=== PATIENT | female | born 1970 | race Caucasian/White ===

== ENCOUNTER 2019-07-24 00:20 | Day surgery (SDC) | payer OTHER, SELFPAY ==
[2019-07-13 13:29] VITALS: BMI 32.0
[2019-07-24] VITALS (9 sets, daily range): BP systolic 103–120; BP diastolic 66–86; PULSE 66–114; RESP 14–18; TEMP 37.1–37.2; O2SAT 96–99
[2019-07-24] MEDS: LACTATED RINGERS 1,000 ML 30 ML IV CONT ×2 (06:20→08:14)
--- NOTE | 2019-07-24 06:46 | P.PNAN_ITS ---
Anes - Initial Pre Proc Eval Procedure: Operation Date: 07/24/19 07:30 Proposed Procedures p Partial Plantar Fasciectomy Left Foot - Bunny Shields JR, MD Date/Time: 07/24/19 06:46 Surgeon: Bunny Shields JR, MD Pre Op Diagnosis: Plantar Fasciitis Left Foot Patient Data Age: 49 Gender: F Height: 1.73 m Weight: 99.3 kg Allergies Allergy/AdvReac Type Severity Reaction Status Date / Time Penicillins Allergy Mild Rash Verified 07/24/19 06:07 Home Medications Medication Instructions Recorded Confirmed Type valacyclovir [Valtrex] 500 mg PO DAILY 07/13/19 07/24/19 History Patient hx anesthesia problems: none Family hx anesthesia problems: none [facility] Past Medical History Medical History (Updated 07/24/19 @ 06:48 by Jerry Philip MD) Obesity Family History Family History (Updated 12/23/15 @ 23:21 by DOCTOR UNKNOWN) Mother Patient's mother is in good health Father Patient's father is in good health Social History Social History Smoking status: Never smoker Alcohol intake: current Anes - Eval Final PreProcedure Day of Procedure 07/24/19 06:46 Patient weight: obese Heart: regular rate and rhythm Lungs: clear to auscultation and normal air movement Airway: Mallampati scale class II Neurological: alert and oriented Last oral intake: >/= 8 hours ASA classification: II Emergent: no Anesthetic plan: proceed Anesthesia type and monitoring: general LMA Informed Consent: The patient's anesthetic plan and its attendant risks and benefits were discussed with the patient/family/POA. Questions were solicited and answers provided to the satisfaction of the patient/family/POA.
--- NOTE | 2019-07-24 07:20 | WPDHPUPDATE1 ---
History and Physical Update Update Date/Time: 07/24/19 07:20 History and Physical has been reviewed, including an updated exam of the patient. There are NO changes in the patient's condition. Risks, benefits, and alternatives have been discussed and questions answered. Patient agrees to proceed with procedure.
[2019-07-24] MEDS: CLINDAMYCIN 900 MG/NS 50 ML 900 MG/50 ML PIGGYBACK 50 MG IVPB (07:25)
[2019-07-24] MEDS: LIDOCAINE HCL 2% LOCAL INJ 20 ML VIAL INFILTRATE (07:44)
[2019-07-24] MEDS: NEOMYCIN/POLYMYXIN/BACITRACIN OINTMENT 15 GM TUBE 1 APPLIC TOPICAL (08:15)
--- NOTE | 2019-07-24 08:30 | PM.OP ---
Procedure Note - Brief Procedure Note - Brief Date of procedure: 07/24/19 Pre-op diagnosis: Plantar Fasciitis Left Foot Post-op diagnosis: same Procedure performed: Partial plantar fasciectomy left foot Anesthesia: GLMA Surgeon: Bunny Shields JR, DPM Estimated blood loss (mL): 1 Complications: No immediate complications Condition: stable Disposition: same day
--- NOTE | 2019-07-24 10:48 | SUR.PHASEII ---
1040- script given to pt and spouse. copy made for chart. pt getting dressed to go home.
--- NOTE | 2019-07-24 15:34 | OP_ITS ---
DATE OF PROCEDURE: 07/24/2019 PREOPERATIVE DIAGNOSIS: Chronic plantar fasciitis of the left foot. POSTOPERATIVE DIAGNOSIS: Chronic plantar fasciitis of the left foot. PROCEDURE: Partial plantar fasciectomy of the left foot. PATHOLOGY: Resected portion of plantar fascia sent for gross and histopathology. ANESTHESIA: LMA with local. HEMOSTASIS: Pneumatic ankle tourniquet at 250 mmHg. ESTIMATED BLOOD LOSS: Minimal. MATERIALS USED: 3-0 Vicryl, 2-0 Prolene, and 3-0 Prolene. INJECTABLES: 20 cc of a 1:1 mixture of 2% lidocaine plain and 0.5% Marcaine plain injected preoperatively. COMPLICATIONS: None. PROCEDURE IN DETAIL: Under mild sedation, the patient was brought into the operating room and placed on the operating table in supine position. A pneumatic ankle tourniquet was placed about the patient's left ankle. Following general anesthesia, local anesthesia was obtained about the left ankle utilizing 20 cc of a 1:1 mixture of 2% lidocaine plain and 0.5% Marcaine plain. The foot was then scrubbed, prepped, and draped in the usual aseptic manner. An Esmarch bandage was then used to exsanguinate the patient's left foot and the pneumatic ankle tourniquet was then inflated. Attention was directed to the plantar aspect of the left foot where the left hallux and left 2nd digit were dorsiflexed. This elicited the windlass effect and made the medial band of the plantar fascia prominent. This medial band of the plantar fascia was extrapolated proximally, and an incision was made just distal to the inferior calcaneus. The incision was continued deep down through subcutaneous tissues using sharp and blunt dissection. The incision was approximately 3 cm in length. Careful dissection was continued deep down to the level of the plantar fascia. A Weitlaner was used to expose the incision site as it extended down to the origin of the medial band of the plantar fascia. At this point, a 15 blade was used to resect a 3 mm component of the medial and central bands of the plantar fascia. It was sent for gross and histopathology. The plantar fascia was noted to be 2 or 3 times normal thickness, the tissue was also hypertrophic and dystrophic. The wound site was then flushed with copious amounts of sterile saline. The lateral band of the plantar fascia was left intact. The wound site was flushed with copious amounts of sterile saline. Next, the subcutaneous structures were reapproximated and coapted utilizing 3-0 Vicryl. Next, the skin was reapproximated and coapted utilizing 2-0 Prolene in vertical mattress suture fashion technique. Next the skin was reapproximated and coapted as well with 3-0 Prolene in simple interrupted suture fashion technique. Upon completion of the procedure, the incision was dressed with Adaptic, 4x4s, Kerlix, and Coban. The pneumatic ankle tourniquet was then deflated and a prompt hyperemic response was noted to all digits of the left foot. A Cam walker boot was then applied. The patient did very well with the procedure and anesthesia. She was transferred to the recovery room with vital signs stable and vascular status intact to all toes of the left foot. Following a period of postoperative monitoring, the patient will be discharged home on the following written and oral postoperative instructions: 1. Keep the dressing clean, dry, and intact. 2. Avoid ambulation for the 1st week. 3. Patient to ice and elevate the right foot when at rest. 4. The patient should wear CAM walker boot at all times. 5. The patient should contact Dr. Shields for all postop care and if any problems arise. 6. Prescriptions were written for Percocet 5/325, dispensed 30 to be taken 1 p.o. q.4-6 hours as needed for severe pain. D I
== END 2019-07-24 10:49 | disposition home or self-care (01) ==
PROVIDERS: PCP Internal Medicine; Visit Provider Podiatrist Foot & Ankle Surgery
PROC: (CPT 28119; principal; 2019-07-24 07:30)
DX: M72.2 Plantar fascial fibromatosis (principal); E66.9 Obesity, unspecified; Z88.0 Allergy status to penicillin
CPT/HCPCS: 28060; 88304; A9270; C9290; J1100; J2250; J2405; J2704; J3010; J7120

== ENCOUNTER 2019-10-27 12:01 | Outpatient (CLI) | payer OTHER, SELFPAY ==
--- NOTE | ~2019-10-27 | XR_ITS ---
EXAMINATION: XR lumbar spine 2-3V EXAM DATE: 10/27/2019 12:26 INDICATION: Low back pain. TECHNIQUE: Lumber spine frontal, lateral, lateral L5-S1 projections for interpretation. Comparison is made to prior examination from 12/25/2016. FINDINGS: There is minimal lumbar levoscoliosis. There is mild diffuse lumbar disc disease and facet arthropathy. The vertebral bodies are aligned in the AP dimension. The vertebral body heights are ma intained. Sacrum, sacroiliac joints, sacral arcuate lines are intact. Paraspinal soft tissue is unrem arkable. There is no significant interval change. IMPRESSION: Mild lumbar spondylosis. Reviewed, dictated and finalized at location A. IMPRESSION: Mild lumbar spondylosis.
--- NOTE | ~2019-10-27 | XR_ITS ---
XR hip RT 2V w AP pelvis 10/27/2019 12:26 INDICATION: Right hip pain PROCEDURE: AP pelvis and 3 views right hip COMPARISON: 01/05/2011 FINDINGS: Fracture, dislocation or subluxation is not identified. The soft tissues appear within norm al limits. No foreign bodies are identified. IMPRESSION: 1: NO ACUTE BONE OR JOINT ABNORMALITY IDENTIFIED. Reviewed, dictated and finalized at location A.
== END 2019-10-27 12:02 | disposition home or self-care (01) ==
PROVIDERS: PCP Internal Medicine; Visit Provider Internal Medicine
DX: M25.551 Pain in right hip (principal); M47.896 Other spondylosis, lumbar region
CPT/HCPCS: 72100; 73502

== ENCOUNTER → 2020-02-02 15:19 | Outpatient (CLI) | payer OTHER, SELFPAY ==
--- NOTE | ~2020-02-02 | MM_ITS ---
EXAMINATION: MM screening byron BI w lu HISTORY: Screening TECHNIQUE: Craniocaudal and mediolateral oblique 3-D tomosynthesis images were obtained and synthetic 2-D images were generated. CAD analysis was submitted and interpreted. COMPARISON: Comparison to multiple prior studies sequentially, with oldest reviewed study dated 02/26. BREAST PARENCHYMAL COMPOSITION: FINDINGS: Stable benign-appearing mass in the upper outer quadrant of the left breast, consistent wit h hamartoma. There is no evidence of suspicious mass, calcification, or architectural distortion to s uggest malignancy in either breast. There has been no suspicious interval change. IMPRESSION: 1. No mammographic evidence of malignancy. 2. Recommend routine screening mammography in one year. BI-RADS Category 2: Benign finding(s). Reviewed, dictated and finalized at location A.
== END ==
PROVIDERS: PCP Internal Medicine; Visit Provider Obstetrics & Gynecology
DX: Z12.31 Encounter for screening mammogram for malignant neoplasm of breast (principal)
CPT/HCPCS: 77063; 77067

== ENCOUNTER 2020-07-22 16:26 | Outpatient (CLI) | payer OTHER, SELFPAY ==
[2020-07-22 18:37] LABS: Thyroid Stimulating Hormone Reflex 0.807 uIU/mL (0.465-4.68)
[2020-07-27 07:32] LABS: FSH 67.2 mIU/mL (***)
== END 2020-07-22 16:27 | disposition home or self-care (01) ==
LOC: ANHLAB 16:27
PROVIDERS: PCP Internal Medicine; Visit Provider Obstetrics & Gynecology
DX: N91.5 Oligomenorrhea, unspecified (principal)
CPT/HCPCS: 36415; 83001; 84443

== ENCOUNTER → 2020-08-01 15:17 | Outpatient (CLI) | payer OTHER, SELFPAY ==
--- NOTE | ~2020-08-01 | US_ITS ---
EXAMINATION: US pelvic complete w TV DATE: 08/01/2020 15:39 INDICATION: Oligomenorrhea Comparison:No prior studies for comparison. TECHNIQUE: Multiple transabdominal and endovaginal sonographic images of the pelvis performed. FINDINGS: The uterus measures 8.3 x 5.6 x 5.1 cm. The endometrial complex measures 7 mm. The right ovary measures 1.7 x 0.9 x 1.1 cm and the left ovary measures 2.5 x 1.4 x 1.6 cm. There ar e small follicles in each ovary.Normal doppler signal in both ovaries. There is no free fluid in the pelvis. There are no abnormal masses seen on either side. IMPRESSION: 1. Unremarkable pelvic ultrasound. Reviewed, dictated and finalized at location A. [employer]ISOR [employer]ELINE
== END ==
PROVIDERS: Visit Provider Obstetrics & Gynecology
DX: N91.5 Oligomenorrhea, unspecified (principal)
CPT/HCPCS: 76830; 76856

== ENCOUNTER → 2020-08-26 05:03 | Outpatient (CLI) | payer OTHER, SELFPAY ==
[2020-08-26 19:22] LABS: SARS-CoV-2 RNA PCR Negative
== END ==
PROVIDERS: Visit Provider Obstetrics & Gynecology
DX: Z01.812 Encounter for preprocedural laboratory examination (principal); Z20.822 Contact with and (suspected) exposure to COVID-19
CPT/HCPCS: C9803; U0003; U0005

== ENCOUNTER 2020-08-29 01:40 | Day surgery (SDC) | payer OTHER, SELFPAY ==
[2020-08-15 14:03] VITALS: BMI 30.4
--- NOTE | 2020-08-29 08:43 | P.HP_ITS ---
H&P: HPI History of Present Illness Date/Time: 08/29/20 08:43 50 y/o with postmenopausal bleeding (FSH indic ates menopause) and thickened endometrium on u/s Chief Complaint: postmenopausal bleeding Review of Systems Review of Systems: All systems reviewed & are unremarkable except as noted in HPI and below PMFSH Past Medical History Medical History Actinic keratosis Dorsalgia Family history of skin cancer Hip pain, right History of actinic keratosis Hyperlipidemia Obesity Plantar fasciitis of left foot Skin cancer screening Vaginal delivery x2 Surgical History Surgical History History of section 01/20/1994 History of foot surgery (~06/2019) History of mandibular surgery 04/1987 Family History Family History Mother Bipolar 1 disorder Sibling Bipolar 1 disorder Grandparent Alzheimer disease grandfather Social History Social History Smoking status: Never smoker Second hand tobacco smoke exposure: No Alcohol intake: current Drinks per week: 1 Substance use: never Substance use type: does not use Living arrangements: with family Spiritual care concerns: No Meds Home Medications and Allergies Home Medications Medication Instructions Recorded Confirmed Type valacyclovir 500 mg PO DAILY 08/15/20 08/15/20 History Allergies Allergy/AdvReac Type Severity Reaction Status Date / Time Penicillins Allergy Mild Rash Verified 08/15/20 14:00 Exam Const: General: healthy appearing, no acute distress, well developed, alert and awake Resp: Auscultation: clear to auscultation bilaterally Cardio: Rate: regular rate Rhythm: regular rhythm GI: Inspection: non-distended GI Palp: Yes Soft to palpation and No Tender ness to palpation present (GI) : Bimanual exam- vagina & uterus: normal bimanual exam, uterine size normal, uterine mobility normal, non-tender and soft Bimanual Exam- Adnexa, other: normal adnexae, no masses and No adnexal tenderness Extrem: General: no pedal edema and no calf tenderness Psych: Mental Status: mental status grossly normal Assessment and Plan Assessment and plan (1) Postmenopausal bleeding: Code(s): N95.0 - Postmenopausal bleeding Status: Acute Assessment and Plan: She was given option of endometrial biopsy in office or D&C/[facility]. She opted and signed consent for D&C/hysteroscopy after risks, benefits, complications, and alternatives discussed. She expressed understanding and wishes to proceed. (2) Endometrial thickening on ultrasound: Code(s): R93.89 - Abnormal findings on diagnostic imaging of other specified body structures Status: Acute
[2020-08-29 12:04] VITALS: BP 106/69; PULSE 60; RESP 16; TEMP 36.6; O2SAT 98
--- NOTE | 2020-08-29 12:25 | WPDANESEPPF ---
Anes - Initial Pre Proc Eval Procedure: Operation Date: 08/29/20 13:45 Proposed Procedures p Hysteroscopy Dilation and Curettage - Yulia Bhandari MD Date/Time: 08/29/20 12:25 Surgeon: Yulia Bhandari MD Pre Op Diagnosis: Abnormal Uterine Bleeding Patient Data Age: 50 Gender: F Height: 5 ft 8 in Weight: 91 kg Allergies Allergy/AdvReac Type Severity Reaction Status Date / Time Penicillins Allergy Intermediate Rash Verified 08/29/20 12:06 Home Medications Medication Instructions Recorded Confirmed Type valacyclovir 500 mg PO DAILY 08/15/20 08/29/20 History Patient hx anesthesia problems: none Family hx anesthesia problems: none PMFSH Past Medical History Medical History Actinic keratosis Dorsalgia Family history of skin cancer Hip pain, right History of actinic keratosis Hyperlipidemia Obesity Plantar fasciitis of left foot Skin cancer screening Vaginal delivery x2 Surgical History Surgical History History of section 01/20/1994 History of foot surgery (~06/2019) History of mandibular surgery 04/1987 Family History Family History Mother Bipolar 1 disorder Sibling Bipolar 1 disorder Grandparent Alzheimer disease grandfather Social History Social History Smoking status: Never smoker Second hand tobacco smoke exposure: No Alcohol intake: current Drinks per week: 1 Substance use: never Substance use type: does not use Living arrangements: with family Spiritual care concerns: No Anes - Eval Final PreProcedure Day of Procedure 08/29/20 12:25 Patient weight: overweight Heart: regular rate and rhythm Lungs: clear to auscultation Airway: Mallampati scale class II Neurological: alert and oriented Last oral intake: >/= 8 hours ASA classification: II Emergent: no Anesthetic plan: proceed Anesthesia type and monitoring: general GIVS and standard monitoring Informed Consent: The patient's anesthetic plan and its attendant risks and benefits were discussed with the patient/family/POA. Questions were solicited and answers provided to the satisfaction of the patient/family/POA.
[2020-08-29] MEDS: LACTATED RINGERS 1,000 ML 30 ML IV CONT (12:26)
[2020-08-29] MEDS: ACETAMINOPHEN 500 MG TABLET 1000 MG PO (12:39)
[2020-08-29] MEDS: SCOPOLAMINE 1.5 MG PATCH TRANSDERM (12:39)
--- NOTE | 2020-08-29 13:11 | WPDHPUPDATE1 ---
History and Physical Update Update Date/Time: 08/29/20 13:11 History and Physical has been reviewed, including an updated exam of the patient. There are NO changes in the patient's condition. Risks, benefits, and alternatives have been discussed and questions answered. Patient agrees to proceed with procedure.
--- NOTE | 2020-08-29 13:12 | PM.PROC ---
Procedure Note - Detailed Date of procedure: 08/29/20 Pre-op diagnosis: Abnormal Uterine Bleeding Postmenopausal bleeding Post-op diagnosis: other (postmenopausal bleeding, endometrial polyp) Procedure performed: D&C, hysteroscopy, endometrial polypectomy Description of procedure: She was taken to the operating room where general anesthesia was obtained. She was prepared and draped in the normal sterile fashion in the dorsal lithotomy position. A speculum was placed in the vagina. The anterior lip of the cervix was grasped with a single-tooth tenaculum. The cervix was dilated to allow passage of the hysteroscope, which revealed a moderate-sized polypoid lesion coming from the posterior wall of the endometrial cavity. Otherwise the endometrial cavity appeared normal. I called for the MyoSure device, but all for devices had been used this morning. While I was waiting for the Myosure scope and device to be brought to the OR, a polyp forceps was used to attempt to remove the endometrial polyp. After obtaining what appeared to be the endometrial polyp, another look was taken with the hysteroscope. The polyp appeared to have been removed in its entirety using the polyp forceps. Sharp curettage was then performed and the curettings sent for pathologic evaluation along with the polypoid tissue. The hysteroscope was used one last time and the polyp still appeared to have been removed. The tenaculum was removed from the cervix. Both tenaculum sites were bleeding slightly. Pressure was held with ring forceps and Allis clamp until excellent hemostasis was assured. All instruments were then removed from the vagina. Sponge, lap, and instrument counts were correct x2. She was taken to the recovery room in stable condition. Anesthesia: MAC Surgeon: Yulia Bhandari MD Estimated blood loss (mL): 10 Drains: No Packing: No Pathology: yes (endometrial curettings) Complications: No immediate complications Condition: stable Disposition: PACU Findings: Moderate sizedl polypoid lesion in otherwise normal endometrial cavity
[2020-08-29] MEDS: KETOROLAC 30 MG/ML VIAL (*BKC) IV PUSH (14:16)
[2020-08-29 15:00] VITALS: BP 105/65; PULSE 72; RESP 12; O2SAT 92
[2020-08-29 15:30] VITALS: BP 102/62; PULSE 49; RESP 12; O2SAT 100
[2020-08-29 15:55] VITALS: BP 106/71; PULSE 53; RESP 14
== END 2020-08-29 16:04 | disposition home or self-care (01) ==
PROVIDERS: PCP Internal Medicine; Visit Provider Obstetrics & Gynecology
PROC: 0U5B8ZZ Destruction of Endometrium, Via Natural or Artificial Opening Endoscopic (ICD-10-PCS; CPT 58563; principal; 2020-08-29 13:45)
DX: N95.0 Postmenopausal bleeding (principal); N84.0 Polyp of corpus uteri; L57.0 Actinic keratosis; E78.5 Hyperlipidemia, unspecified; M72.2 Plantar fascial fibromatosis
CPT/HCPCS: 58558; 88305; A9270; C9803; J1885; J2250; J2405; J2704; J3010; J7030; J7120; U0003; U0005

== ENCOUNTER → 2021-05-05 04:07 | Outpatient (CLI) | payer OTHER, SELFPAY ==
[2021-05-05 19:26] LABS: SARS-CoV-2 RNA PCR Negative
== END ==
PROVIDERS: PCP Internal Medicine; Visit Provider Obstetrics & Gynecology
DX: Z01.812 Encounter for preprocedural laboratory examination (principal); Z20.822 Contact with and (suspected) exposure to COVID-19
CPT/HCPCS: C9803; U0003; U0005

== ENCOUNTER 2021-05-08 14:56 | Inpatient (IN) | payer OTHER, SELFPAY ==
[2021-05-01 10:52] VITALS: BMI 30.4
--- NOTE | 2021-05-01 11:03 | PC.NURSE ---
Report to the Outpatient Waiting Room, entrance under the green pavilion located off [facility], at time 1000 on date 05/08/21. OR Time: 1200. - You and your visitor will be asked a series of questions to screen for COVID 19 for your protection. - A mask is required within the hospital. - Only one visitor is allowed at this time. Patient visitors will be guided where to wait when not with patient. Preoperative COVID Testing Requirements: No COVID Test needed if: (proof is required; if not received patient will have Rapid Test prior to entry) - Patient has received COVID Vaccine at least 14 days prior to procedure date or - Patient has positive COVID test result within last 90 days of surgery date. COVID Test needed if above criteria is not met If not COVID vaccinated a COVID test must be conducted within 72 hours of surgery and patient is asked to isolate self from time of testing until procedure. You will go to the [facility] for your COVID testing. The [facility] is located at the corner of [address] [facility]. COVID TEST 05/05 AT 0900 You will only be called if COVID results are positive and your surgeon may reschedule your elective surgery date. Patients may have clear liquids (water, carbonated beverages, clear teas, apple juice) until 3 hours prior to surgery with a maximum of 20 ounces. - No food from midnight until time of surgery - Infants may have breast milk until 4 hours before surgery, infant formula 6 hours prior to surgery. - Children will be allowed to drink immediately following surgery. If applicable, please bring a bottle or sippy cup to assist with drinking. Juice, water, soda, and popsicles are readily available. For infants on formula, please bring formula the day of surgery. Pacifiers are allowed. Take the following medications with a SIP of water the morning of surgery: VALTREX Medications to discontinue per physician: N/A Date to take last dose: N/A Please no make-up, nail dominican, hairspray, perfume, deodorant, or body powder the day of surgery. No jewelry (including any body piercings) or valuables the day of surgery, leave them at home. Please take a shower or bath the night before, or the morning of, surgery with an antibacterial soap. Wear comfortable, loose fitting clothing. Children are encouraged to wear pajamas. - Jewelry must be removed prior to entering the operating room. Rings and piercings that are not removed may be cut off. - The hospital will not accept responsibility for valuables. - Please leave all valuables, including medications, at home the day of surgery. If you are going home after surgery, a licensed electric lift truck driver must drive you home. - NO public transportation without another adult. - We recommend that an adult stay with you for 24 hours following discharge. - We also recommend that you do not drive, make important decision, drink alcoholic beverages, or take any drugs that were not prescribed by your health care provider for at least 24 hours after your discharge time. For Pediatric surgeries, we recommend two adults accompany the child home (only one inside the building at this time). Follow any additional instructions given to you from your surgeon. Telephone instructions given to TONYA WOODY and asked if any additional questions and then verbalized understanding. Patient advised to call surgeon office or pre surgery nurse liaison [phone] if any additional questions.
--- NOTE | 2021-05-04 08:29 | P.HP_ITS ---
H&P: HPI History of Present Illness Date/Time: 05/04/21 08:29 51 y/o with h/o postmenopausal bleeding for which she had D&C/polypectomy 08/2020. She has had bleeding 2-5 days roughly each month since, and is in menopause based on elevated FSH 06/2020. No pelvic pain Chief Complaint: postmenopausal bleeding Review of Systems Review of Systems: All systems reviewed & are unremarkable except as noted in HPI and below PMFSH Past Medical History Medical History Actinic keratosis Dorsalgia Family history of skin cancer Hip pain, right History of actinic keratosis Hyperlipidemia Obesity Plantar fasciitis of left foot Skin cancer screening (vaginal after ) x2 Surgical History Surgical History History of section x1 History of foot surgery (~06/2019) History of mandibular surgery 04/1987 Family History Family History Mother Bipolar 1 disorder Sibling Bipolar 1 disorder Grandparent Alzheimer disease grandfather Social History Social History Smoking status: Never smoker Second hand tobacco smoke exposure: No Alcohol intake: current Drinks per week: 2 Alcohol use details: 2-3 per month Substance use: never Substance use type: does not use Spiritual care concerns: No Meds Home Medications and Allergies Home Medications Medication Instructions Recorded Confirmed Type valacyclovir 500 mg PO DAILY 08/15/20 05/01/21 History Allergies Allergy/AdvReac Type Severity Reaction Status Date / Time Penicillins Allergy Intermediate Rash Verified 05/01/21 10:51 Exam Const: General: healthy appearing, no acute distress, alert and awake Resp: Auscultation: clear to auscultation bilaterally Cardio: Rate: regular rate Rhythm: regular rhythm GI: Inspection: non-distended GI Palp: Yes Soft to palpation and No Tenderness to palpation present (GI) : Bimanual exam- vagina & uterus: normal bimanual exam, uterine size normal, uterine mobility normal, soft and nontender Bimanual Exam- Adnexa, other: nor mal adnexae, no masses and No adnexal tenderness Extrem: General: no pedal edema and no calf tenderness Psych: Mental Status: mental status grossly normal Assessment and Plan Assessment and plan (1) Postmenopausal bleeding: Code(s): N95.0 - Postmenopausal bleeding Status: Acute Assessment and Plan: Persistent postmenopausal bleeding with h/o endometrial polyps. She opted and signed consent for TLH/BSO after risks, benefits, complications, and alternatives discussed. She expressed understanding and wishes to proceed.
[2021-05-08] VITALS (9 sets, daily range): BP systolic 94–112; BP diastolic 53–74; PULSE 60–82; RESP 12–18; TEMP 36.1–36.9; O2SAT 98–100
[2021-05-08] MEDS: ACETAMINOPHEN 500 MG TABLET 1000 MG PO (10:50)
--- NOTE | 2021-05-08 10:54 | WPDANESEPPF ---
Anes - Initial Pre Proc Eval Procedure: Operation Date: 05/08/21 12:00 Proposed Procedures p Total Laparoscopic Hysterectomy with Bilateral Salpingo-Oophorectomy - Yulia Bhandari MD Date/Time: 05/08/21 10:54 Surgeon: Yulia Bhandari MD Pre Op Diagnosis: post menopausal bleeding Patient Data Age: 51 Gender: F Height: 1.73 m Weight: 90.72 kg Allergies Allergy/AdvReac Type Severity Reaction Status Date / Time Penicillins Allergy Intermediate Rash Verified 05/08/21 10:33 Home Medications Medication Instructions Recorded Confirmed Type valacyclovir 500 mg PO DAILY 08/15/20 05/01/21 History Patient hx anesthesia problems: none and other (motion sickness) Family hx anesthesia problems: none Results Review: All pre-operative results and documents have been reviewed as part of the pre-operative evaluation. [facility] Past Medical History Medical History Actinic keratosis Dorsalgia Family history of skin cancer Hip pain, right History of actinic keratosis Hyperlipidemia Obesity Plantar fasciitis of left foot Skin cancer screening (vaginal after ) x2 Surgical History Surgical History History of section x1 History of foot surgery (~06/2019) History of mandibular surgery 04/1987 Family History Family History Mother Bipolar 1 disorder Sibling Bipolar 1 disorder Grandparent Alzheimer disease grandfather Social History Social History Smoking status: Never smoker Second hand tobacco smoke exposure: No Alcohol intake: current Drinks per week: 2 Alcohol use details: 2-3 per month Substance use: never Substance use type: does not use Living arrangements: with family Spiritual care concerns: No Anes - Eval Final PreProcedure Day of Procedure 05/08/21 10:54 Patient weight: overweight Heart: regular rate and rhythm Lungs: clear to auscultation Airway: Mallampati scale class II Neurological: alert and oriented Last oral intake: >/= 8 hours ASA classification: II Emergent: no Anesthetic plan: proceed Anesthesia type and monitoring: general ETT and standard monitoring Results Review: All pre-operative results and documents have been reviewed as part of the pre-operative evaluation. Informed Consent: The patient's anesthetic plan and its attendant risks and benefits were discussed with the patient/family/POA. Questions were solicited and answers provided to the satisfaction of the patient/family/POA.
[2021-05-08] MEDS: LACTATED RINGERS 1,000 ML 30 ML IV CONT ×2 (11:05→14:01)
[2021-05-08] MEDS: KETOROLAC 15 MG/ML VIAL (*BKC) IV PUSH (11:05)
[2021-05-08] MEDS: SCOPOLAMINE 1.5 MG PATCH TRANSDERM (11:13)
--- NOTE | 2021-05-08 11:41 | WPDHPUPDATE1 ---
History and Physical Update Update Date/Time: 05/08/21 11:41 History and Physical has been reviewed, including an updated exam of the patient. There are NO changes in the patient's condition. Risks, benefits, and alternatives have been discussed and questions answered. Patient agrees to proceed with procedure.
[2021-05-08] MEDS: ceFAZolin 2 GM/D5W 50 ML 2 GM/50 ML BAG IVPB (12:11)
[2021-05-08] MEDS: LIDO 2%/EPINEPHRINE 1:100,000 20 ML VIAL 17 ML INFILTRATE (12:37)
--- NOTE | 2021-05-08 13:20 | SUR.OPER ---
PATIENT MAINTAINS POSITIONING/UNCHANGED.
--- NOTE | 2021-05-08 13:51 | W.PM.PROC2 ---
Procedure Note - Detailed Date of Procedure 05/08/21 Pre-op Diagnosis post menopausal bleeding Post-op Diagnosis same Procedure Performed TLH/BSO Surgeon Yulia Bhandari MD Anesthesia general Indications recurrent postmenopausal bleeding Findings normal uterus, tubes, ovaries, appendix Description of Procedure She was taken to the operating room where general anesthesia was obtained. She was prepared and draped in the normal sterile fashion in the dorsal lithotomy position. Lidocaine was injected infraumbilically. A 5 mm skin incision was made in the infraumbilical fold with a scalpel. A 5 mm nonbladed trocar was placed with the camera in the trocar under direct visualization into the peritoneal cavity. Insufflation was begun. She was placed in Trendelenburg. 5 mm trocar was placed in the left lower quadrant under direct visualization, and the 11 mm trocar in the right lower quadrant. Inspection of the pelvis revealed the findings as noted above. The right infundibulopelvic ligament was grasped, coagulated, and transected using the Harmonic scalpel. The mesosalpinx was serially clamped and transected. The round ligament was then transected. The bladder flap was then created from the right side. The uterine artery was skeletonized. Attention was then turned to the left infundibulopelvic ligament, which was grasped and transected using Harmonic scalpel. The mesosalpinx and round ligaments were transected on the left side. The bladder flap was then created from the left, meeting the flap the right. The bladder was pushed down further with the laparoscopic Kittner. The bladder was taken down further using sharp dissection. The left uterine artery was skeletonized, clamped, coagulated, and transected using the Harmonic scalpel with excellent hemostasis visualized. Another several bites were taken down the broad ligament until the level of the uterosacral ligament had been reached. The right uterine artery was then clamped and transected. Several bites were taken down the broad ligament to the level of the uterosacral ligament was reached. Both uterosacral ligaments were then divided. Sponge stick was placed in the vagina and placed against the anterior cul-de-sac. A colpotomy incision was made with the Harmonic scalpel against the sponge stick. The vagina was then circumferentially incised, hugging against the cervix. Once the cervix and uterus were free of the surrounding vaginal tissue, the pelvis was irrigated. Excellent hemostasis was visualized. The cervix was pressed down as far as possible into the vaginal canal. Attention was then turned to the vagina. A speculum was placed. The cervix was grasped with single-tooth tenaculum. The cervix, uterus, fallopian tubes, and ovaries were all brought easily intact through the vagina. Moist blue towel was placed in the vagina to help hold the pneumoperitoneum. Attention was then turned back to the abdomen. The vaginal cuff was closed using 0 Vicryl interrupted sutures placed laparoscopically. A total of 4 sutures were used for reapproximation. The pelvis was once again irrigated. All operative sites were noted to be hemostatic. The right lower quadrant trocar was removed. . The Dany-Tiffanie device along with an 0 Vicryl was used to close the fascia of the right lower quadrant incision. The pneumoperitoneum was allowed to escape. All trocars were removed. All 3 skin incisions were closed using 4-0 Monocryl in subcuticular fashion. She tolerated the procedure well. Sponge, lap, needle, and instrument counts were correct x2. She was taken to the recovery room in stable condition. Estimated Blood Loss 150 Drains Yes ([place]) Packing No Pathology yes Complications No immediate complications Condition stable Disposition PACU
[2021-05-08] MEDS: DEXTROSE 5%/LACTATED RINGERS 1,000 ML 125 ML IV CONT (15:47)
[2021-05-08] MEDS: ENOXAPARIN 40 MG/0.4 ML SYRINGE SUB-Q (20:00)
[2021-05-09 04:30] VITALS: BP 101/56; PULSE 66; RESP 16; TEMP 36.8; O2SAT 100
[2021-05-09] MEDS: IBUPROFEN 600 MG TABLET PO (04:34)
[2021-05-09 05:17] LABS: Basophils Percent Auto 0.3 % (0.2-1.2); Hematocrit 37.3 % (37.0-47.0); Hemoglobin 12.4 g/dL (12.0-15.0); Immature Granulocyte Absolute 0.02 K/mm3 (0.00-0.031); Immature Granulocyte Percent A 0.3 % (0-0.5); Lymphocytes Percent Auto 19.1 % (18.3-44.2); Mean Corpuscular HGB Conc 33.2 g/dl (32-36); Mean Corpuscular Hemoglobin 31.9 pg (26-34); Mean Corpuscular Volume 95.9 fl (80-100); Mean Platelet Volume 9.5 fl (7.4-10.4); Monocytes Absolute Auto 0.5 K/mm3 (0.1-0.6); Monocytes Percent Auto 5.9 % (2.6-8.5); Neutrophils Absolute Auto 5.9 K/mm3 (1.3-6.7); Neutrophils Percent Auto 74.4 % (45.5-73.1); Platelet Count Result 275 k/mm3 (150-375); Red Blood Count 3.89 M/mm3 (4.2-5.4); Red Cell Distribution Width 13.1 % (11.5-14.5); White Blood Count 7.9 K/mm3 (4.5-10.0)
[2021-05-09 05:31] LABS: Anion Gap 5 mmol/L (8-16); Blood Urea Nitrogen 10 mg/dL (7-17); Calcium 9.2 mg/dL (8.4-10.2); Carbon Dioxide 28 mmol/L (22-30); Chloride 103 mmol/L (98-107); Estimated CRCL calculation 112 ml/min; Estimated Glomerular Filt Rate > 60; Glucose 112 mg/dL (65-110); Potassium 3.9 mmol/L (3.4-5.0); Sodium 136 mmol/L (137-145)
--- NOTE | 2021-05-09 07:28 | WPDANESPN ---
Anes - Prog Note Post-Op Date/Time: 05/09/21 07:28 Cardiovascular status: normal Respiratory status: normal Airway patency: baseline Mental status: baseline Post-Op hydration status: normal Vital Signs: Last Vital Signs Temp 36.8 C 05/09/21 04:30 Pulse 66 05/09/21 04:30 Resp 16 05/09/21 04:30 BP 101/56 L 05/09/21 04:30 Pulse Ox 100 05/09/21 04:30 Pain Score (VAS): 0 I/O: Intake & Output 05/08/21 05/08/21 05/09/21 15:59 23:59 07:59 Intake Total 250 1250 500 Output Total 80 1400 275 Balance 170 -150 225 Laboratory Tests 05/09/21 04:18 05/09/21 04:18 05/09/21 05/09/21 04:18 04:18 WBC 7.9 RBC 3.89 L Hgb 12.4 Hct 37.3 MCV 95.9 MCH 31.9 MCHC 33.2 RDW 13.1 Plt Count 275 MPV 9.5 Immature Gran % (Auto) 0.3 Neut % (Auto) 74.4 H Lymph % (Auto) 19.1 [place] % (Auto) 5.9 Eos % (Auto) 0.0 Baso % (Auto) 0.3 Lymph # (Auto) 1.50 [place] # (Auto) 0.5 Eos # (Auto) 0.0 Baso # (Auto) 0.0 Abs Immat Gran (auto) 0.02 Absolute Neuts (auto) 5.9 Absolute Nucleated RBC 0.0 Nucleated RBC % 0.0 Sodium 136 L Potassium 3.9 Chloride 103 Carbon Dioxide 28 Anion Gap 5 L BUN 10 Creatinine 0.60 L Estim Creat Clear Calc 112 Estimated GFR > 60 Glucose 112 H Calcium 9.2 Post-procedural complaints: none Patient Feedback: Patient satisfied with anesthetic care.
[2021-05-09 08:20] VITALS: BP 90/51; PULSE 64; RESP 18; TEMP 36.9; O2SAT 98
--- NOTE | 2021-05-09 08:24 | PM.GYNPNOP ---
DYE RANGE OPERATOR - A/P Postoperative Procedures: Procedures Operation Date: 05/08/21 12:00 Actual Procedure Side Surgeon p Total Laparoscopic Hysterectomy with Bilateral Salpingo-Oophorectomy Bilateral Yulia Bhandari MD Postoperative day: 1 (s/p hysterectomy) Postoperative status: doing well Postoperative plan: routine post-op care and discharge (and follow up in office in 1 week) Time Spent With Patient Time: Total time spent is greater than 50% in coordination of care (as documented) at patient's floor/unit and/or counseling patient: Time with patient: less than 15 minutes DYE RANGE OPERATOR- PN:Subj Post-Op Subjective Date/time seen: 05/09/21 08:24 Subjective: patient has no complaints, pain is well controlled and other (Tolerating regular diet. + flatus. Voiding without problems) Exam Const: General: no acute distress Resp: Auscultation: clear to auscultation bilaterally Cardio: Rate: regular rate Rhythm: regular rhythm GI: Inspection: non-distended and incision (Intact without erythema, drainage, or induration) GI Palp: Yes abdominal tenderness (appropriate) and Yes Soft to palpation Extrem: General: no edema DYE RANGE OPERATOR - PN: Obj Data Vital Signs Vital Signs: Vital Signs - 24 hr 05/08/21 11:06 05/08/21 14:01 05/08/21 14:15 Temperature 36.7 C 36.1 C L Pulse Rate 72 75 82 Respiratory Rate 14 18 Blood Pressure 109/71 94/53 L 102/61 Pulse Oximetry 98 100 100 05/08/21 14:30 05/08/21 14:45 05/08/21 14:54 Temperature Pulse Rate 71 60 71 Respiratory Rate 12 14 16 Blood Pressure 102/72 102/74 102/68 Pulse Oximetry 100 99 100 05/08/21 15:15 05/08/21 19:00 05/08/21 23:01 Temperature 36.5 C 36.9 C 36.8 C Pulse Rate 72 80 72 Respiratory Rate 18 16 16 Blood Pressure 112/63 112/68 110/70 Pulse Oximetry 99 99 05/09/21 04:30 Temperature 36.8 C Pulse Rate 66 Respiratory Rate 16 Blood Pressure 101/56 L Pulse Oximetry 100 Intake/Output Intake/Output: Intake & Output 05/06/21 05/07/21 05/08/21 05/09/21 23:59 23:59 23:59 23:59 Intake Total 1500 500 Output Total 1480 275 Balance 20 225 Meds/Results Medications: Active Medications Generic Name Dose Route Start Last Admin Trade Name Freq PRN Reason Stop Dose Admin Hydrocodone Bitart/Acetaminophen 1 tab 05/08/21 14:56 Hydrocodone/Acetaminophen (*Crx) 5-325 Mg Tablet PO Q3H PRN Pain Rated 5 or Less Hydrocodone Bitart/Acetaminophen 1 tab 05/08/21 14:56 Hydrocodone/Acetaminophen (*Crx) 10-325 Mg Tablet PO Q3H PRN Pain Rated 6 or Greater Enoxaparin Sodium 40 mg 05/08/21 20:00 05/08/21 20:00 Enoxaparin 40 Mg/0.4 Ml Syringe SUB-Q 40 mg DAILY WENDY Administration Ibuprofen 600 mg 05/08/21 14:56 05/09/21 04:34 Ibuprofen 600 Mg Tablet PO 600 mg Q6H PRN Administration Cramping Ketorolac Tromethamine 30 mg 05/08/21 14:56 Ketorolac 30 Mg/Ml Vial (*Bkc) IV PUSH 05/13/21 14:55 Q6H PRN Pain Rated 4-6 Metoclopramide HCl 10 mg 05/08/21 14:56 Metoclopramide Hcl Inj 10 Mg/2 Ml Vial IV PUSH Q6H PRN Nausea Morphine Sulfate 4 mg 05/08/21 14:56 Morphine Sulfate (*Crx) 4 Mg/Ml Inj IV PUSH Q4H PRN Pain Rated 7-10 Naloxone HCl 0.1 mg 05/08/21 14:56 Naloxone Hcl 0.4 Mg/Ml Vial IV PUSH Q2M PRN Respiratory rate less than 10 Ondansetron HCl 4 mg 05/08/21 14:56 Ondansetron Inj 4 Mg/2 Ml Vial IV PUSH Q6H PRN Nausea Simethicone 80 mg 05/08/21 14:56 Simethicone 80 Mg Tab.Chew PO Q2H PRN Gas Valacyclovir HCl 500 mg 05/09/21 09:00 Valacyclovir Hcl 500 Mg Tablet PO DAILY [facility] Labs CBC & Chem 7: 05/09/21 04:18 05/09/21 04:18 Labs: Laboratory Results - last 24 hr 05/09/21 05/09/21 04:18 04:18 WBC 7.9 RBC 3.89 L Hgb 12.4 Hct 37.3 MCV 95.9 MCH 31.9 MCHC 33.2 RDW 13.1 Plt Count 275 MPV 9.5 Immature Gran % (Auto) 0.3 Neut % (Auto) 74.4 H Lymph
--- NOTE | 2021-05-09 08:24 | PM.DS ---
DS: Admitting Diagnosis Discharge Date 05/09/2021 Admitting Diagnosis Postmenopausal bleeding DS: Discharge Diagnosis Discharge Diagnosis (1) Postmenopausal bleeding: Code(s): N95.0 - Postmenopausal bleeding Status: Acute DS: Summary Hospital Course Hospital Course: 51-year-old man who is menopausal who had AD and C hysteroscopy and polypectomy about 6 months ago, and since that time has had recurrent postmenopausal bleeding several times. She opted for definitive therapy in the form of hysterectomy. She was admitted on May 08 for planned total laparoscopic hysterectomy and bilateral salpingo-oophorectomy. Her surgery on May 08 was uneventful. Her postoperative course has also been uneventful. On postoperative day 1. May 09 she is meeting all postoperative milestones and expressed desire to be discharged home. She is being sent home with follow-up in 1 week in the medications as listed. Status at Discharge Functional status at discharge: independent ambulation Overall status at discharge: patient is progressing back to baseline Time Spent with Patient Time attestation: Total time spent providing and/or coordinating discharge services: Time spent: Less than 30 minutes DS: Data Data Completed and Pending Pending studies at discharge: Pending at discharge 05/08/21 13:26 Surgical [PTH] Routine Labs on day of discharge: Labs from last 24 hours 05/09/21 05/09/21 04:18 04:18 WBC 7.9 RBC 3.89 L Hgb 12.4 Hct 37.3 MCV 95.9 MCH 31.9 MCHC 33.2 RDW 13.1 Plt Count 275 MPV 9.5 Immature Gran % (Auto) 0.3 Neut % (Auto) 74.4 H Lymph % (Auto) 19.1 [place] % (Auto) 5.9 Eos % (Auto) 0.0 Baso % (Auto) 0.3 Lymph # (Auto) 1.50 [place] # (Auto) 0.5 Eos # (Auto) 0.0 Baso # (Auto) 0.0 Abs Immat Gran (auto) 0.02 Absolute Neuts (auto) 5.9 Absolute Nucleated RBC 0.0 Nucleated RBC % 0.0 Sodium 136 L Potassium 3.9 Chloride 103 Carbon Dioxide 28 Anion Gap 5 L BUN 10 Creatinine 0.60 L Estim Creat Clear Calc 112 Estimated GFR > 60 Glucose 112 H Calcium 9.2 Discharge Plan Discharge Attending physician on discharge: Yulia Bhandari Discharging Clinician: Yulia Bhandari Patient Disposition: Home, Self-Care Activity: may shower and pelvic rest Diet: as tolerated Wound Care Instructions: incision open to air Discharge Instructions: Remove the Scopolamine patch that was placed behind your left ear in 72 hours or less. Wash your hands after touching. Stand Alone Forms: General Discharge Instructions Follow-up/Referrals: Yulia Bhandari MD [Physician] - 1 Week Discharge Medications: New hydrocodone-acetaminophen 5-325 mg Tablet 1 tablet PO Q4H PRN (Reason: Pain Rated 5 Or Less) Qty: 30 RF: 0 ibuprofen 600 mg Tablet 600 mg PO Q6H PRN (Reason: Cramping) Qty: 60 RF: 0 Continued valacyclovir 500 mg tablet 500 mg PO DAILY RF: 0 Date of admission: 05/08/21 14:56 Primary Care Provider: Segun Krause Admitting Provider: Yulia Bhandari Attending physician on admission: Yulia Bhandari Condition: Stable Quality VTE Prophylaxis VTE prophylaxis: mechanical ordered and pharmacologic ordered
[2021-05-09] MEDS: valACYclovir HCL 500 MG TABLET PO (09:43)
== END 2021-05-09 11:10 | disposition home or self-care (01) | DRG 743 ==
LOC: ANHOB2 15:48
PROVIDERS: Admitting Provider Obstetrics & Gynecology; PCP Internal Medicine; Visit Provider Obstetrics & Gynecology
PROC: 0UT9FZZ Resection of Uterus, Via Natural or Artificial Opening With Percutaneous Endoscopic Assistance (ICD-10-PCS; principal; 2021-05-08 12:00)
DX: N95.0 Postmenopausal bleeding (principal); E78.5 Hyperlipidemia, unspecified
CPT/HCPCS: 36415; 80048; 85025; 88307; A9270; C9803; J0690; J1100; J1170; J1650; J1885; J2250; J2370; J2405; J2704; J2710; J3010; J7030; J7120; J7121; U0003; U0005

== ENCOUNTER → 2021-06-06 15:43 | Outpatient (CLI) | payer OTHER, SELFPAY ==
--- NOTE | ~2021-06-06 | MM_ITS ---
EXAMINATION: MM screening byron BI w lu HISTORY: Screening TECHNIQUE: Craniocaudal and mediolateral oblique 3-D tomosynthesis images were obtained and synthetic 2-D images were generated. CAD analysis was submitted and interpreted. COMPARISON: Comparison to multiple prior studies sequentially, with oldest reviewed study dated 02/25. BREAST PARENCHYMAL COMPOSITION: The breasts are heterogeneously dense, which may obscure small masses . FINDINGS: There is no evidence of suspicious mass, calcification, or architectural distortion to sugg est malignancy in either breast. There has been no suspicious interval change. IMPRESSION: 1. No mammographic evidence of malignancy. 2. Recommend routine screening mammography in one year. BI-RADS Category 1: Negative Reviewed, dictated and finalized at location A. WALS SPECIALIST
== END ==
PROVIDERS: Visit Provider Obstetrics & Gynecology
DX: Z12.31 Encounter for screening mammogram for malignant neoplasm of breast (principal)
CPT/HCPCS: 77063; 77067

== ENCOUNTER 2022-03-15 11:52 | Day surgery (SDC) | payer OTHER, SELFPAY ==
[2021-11-09 15:17] VITALS: BMI 32.8
[2022-03-02 14:27] VITALS: BMI 28.8
[2022-03-15 12:38] VITALS: BP 124/72; PULSE 71; RESP 16; TEMP 37.4; O2SAT 99
[2022-03-15 12:42] VITALS: BMI 30.9
[2022-03-15] MEDS: LACTATED RINGERS 1,000 ML 150 ML IV CONT (12:55)
--- NOTE | 2022-03-15 13:01 | PM.HPGS ---
History of Present Illness History of Present Illness Consent: Risks, benefits, and alternatives have been discussed and questions answered. Patient agrees to proceed with procedure. Chief complaint: Neoplasm screening Narrative: Elida Haywood is a 52 year old female Presents for screening colonoscopy. Patient's current weight appetite and bowel movements are normal. Patient denies abdominal pain. She has had no bleeding. Family history is noncontributory. Review of Systems Review of Systems: Review of systems noncontributory. [facility] Past Medical History Medical History Actinic keratosis Dorsalgia Family history of skin cancer Hip pain, right History of actinic keratosis Hyperlipidemia Obesity Plantar fasciitis of left foot Skin cancer screening (vaginal after ) x2 Surgical History Surgical History History of bilateral salpingo-oophorectomy 05/08/21 History of section x1 History of foot surgery (~06/2019) History of hysterectomy 05/08/21, [facility] History of mandibular surgery 04/1987 Family History Family History Mother Bipolar 1 disorder Sibling Bipolar 1 disorder Grandparent Alzheimer disease grandfather Social History Social History Smoking status: Never smoker Second hand tobacco smoke exposure: No Alcohol intake: current Drinks per week: 2 Alcohol use details: 2-3 per month Substance use: never Substance use type: does not use Living arrangements: with family Spiritual care concerns: No Meds Home Medications and Allergies Home Medications Medication Instructions Recorded Confirmed Type valacyclovir 500 mg tablet 500 mg PO DAILY #90 tabs 05/29/21 03/02/22 Rx Allergies Allergy/AdvReac Type Severity Reaction Status Date / Time Penicillins Allergy Intermediate Rash Verified 03/15/22 12:37 Vital Signs Vital Signs - 24 hr 03/15/22 12:38 Temperature 99.3 F Pulse Rate 71 Respiratory Rate 16 Blood Pressure 124/72 Pulse Oximetry 99 Oxygen Delivery Room Air Exam Narrative: Physical exam reveals patient to be alert. Vital signs stable. HEENT exam is unremarkable. Patient is anicteric. Lungs are clear to auscultation and percussion. Heart is without murmur or extra sounds. Abdomen bowel sounds are present soft nontender with no organomegaly. Digital external rectal exam is normal. Assessment and Plan Assessment and plan (1) Encounter for screening colonoscopy: Code(s): Z12.11 - Encounter for screening for malignant neoplasm of colon Status: Acute Assessment and Plan: Patient presents for screening colonoscopy. She appears to be at average risk for colon polyps.
--- NOTE | 2022-03-15 13:14 | P.PNAN_ITS ---
Anes - Initial Pre Proc Eval Procedure: Operation Date: 03/15/22 14:00 Proposed Procedures p Screening Colonoscopy - Sony Montez MD Date/Time: 03/15/22 13:14 Surgeon: Sony Montez MD Pre Op Diagnosis: Neoplasm screening Patient Data Age: 52 Gender: F Height: 1.73 m Weight: 92.25 kg Last Vital Signs Temp 37.4 C 03/15/22 12:38 Pulse 71 03/15/22 12:38 Resp 16 03/15/22 12:38 BP 124/72 03/15/22 12:38 Pulse Ox 99 03/15/22 12:38 O2 Del Method Room Air 03/15/22 12:38 Allergies Allergy/AdvReac Type Severity Reaction Status Date / Time Penicillins Allergy Intermediate Rash Verified 03/15/22 12:37 Home Medications Medication Instructions Recorded Confirmed Type valacyclovir 500 mg tablet 500 mg PO DAILY #90 tabs 05/29/21 03/02/22 Rx Patient hx anesthesia problems: none Family hx anesthesia problems: none Results Review: All pre-operative results and documents have been reviewed as part of the pre- operative evaluation. [facility] Past Medical History Medical History Actinic keratosis Dorsalgia Family history of skin cancer Hip pain, right History of actinic keratosis Hyperlipidemia Obesity Plantar fasciitis of left foot Skin cancer screening (vaginal after ) x2 Surgical History Surgical History History of bilateral salpingo-oophorectomy 05/08/21 History of section x1 History of foot surgery (~06/2019) History of hysterectomy 05/08/21, [facility] History of mandibular surgery 04/1987 Family History Family History Mother Bipolar 1 disorder Sibling Bipolar 1 disorder Grandparent Alzheimer disease grandfather Social History Social History Smoking status: Never smoker Second hand tobacco smoke exposure: No Alcohol intake: current Drinks per week: 2 Alcohol use details: 2-3 per month Substance use: never Substance use type: does not use Living arrangements: with family Spiritual care concerns: No Anes - Eval Final PreProcedure Day of Procedure 03/15/22 13:14 Patient weight: normal Heart: regular rate and rhythm Lungs: clear to auscultation Airway: Mallampati scale class II Neurological: alert and oriented Last oral intake: >/= 8 hours ASA classification: II Emergent: no Anesthetic plan: proceed Anesthesia type and monitoring: general GIVS and standard monitoring Results Review: All pre-operative results and documents have been reviewed as part of the pre- operative evaluation. Informed Consent: The patient's anesthetic plan and its attendant risks and benefits were discussed with the patient/family/POA. Questions were solicited and answers provided to the satisfaction of the patient/family/POA.
[2022-03-15 13:55] VITALS: BP 111/76; PULSE 72; RESP 16; O2SAT 97
[2022-03-15 14:05] VITALS: BP 112/76; PULSE 75; RESP 16; O2SAT 98
--- NOTE | 2022-03-15 14:07 | WPDANESPN ---
Anes - Prog Note Post-Op Date/Time: 03/15/22 14:07 Cardiovascular status: normal Respiratory status: normal Airway patency: baseline Mental status: baseline Post-Op hydration status: normal Vital Signs: Last Vital Signs Temp 37.4 C 03/15/22 12:38 Pulse 72 03/15/22 13:55 Resp 16 03/15/22 13:55 BP 111/76 03/15/22 13:55 Pulse Ox 97 03/15/22 13:55 O2 Del Method Room Air 03/15/22 13:55 Pain Score (VAS): 0/10 I/O: Intake & Output 03/14/22 03/15/22 03/15/22 23:59 07:59 15:59 Intake Total 400 Balance 400 Patient Feedback: Patient satisfied with anesthetic care.
--- NOTE | 2022-03-15 14:10 | SUR.PHASEII ---
PT AWAKE AND ALERT. EATING CRACKERS AND DRINKING WHITE SODA. FAMILY AT BEDSIDE. DENIES PAIN. ASKING WHEN SHE CAN GO HOME,.
[2022-03-15 14:15] VITALS: BP 125/79; PULSE 75; RESP 16; O2SAT 98
== END 2022-03-15 14:30 | disposition home or self-care (01) ==
PROVIDERS: PCP Internal Medicine; Visit Provider Internal Medicine Gastroenterology
PROC: 0DJD8ZZ Inspection of Lower Intestinal Tract, Via Natural or Artificial Opening Endoscopic (ICD-10-PCS; CPT 45378; principal; 2022-03-15 14:00)
DX: Z12.11 Encounter for screening for malignant neoplasm of colon (principal)
CPT/HCPCS: 45378

== ENCOUNTER → 2022-08-18 08:16 | Outpatient (CLI) | payer OTHER, SELFPAY ==
--- NOTE | ~2022-08-18 | US_ITS ---
US abdomen complete DATE: 08/18/2022 08:44 INDICATION: Right lower quadrant abdominal pain, back pain TECHNIQUE: Real-time imaging and Doppler analysis of the abdomen and COMPARISON: None FINDINGS: The no hepatic or pancreatic space-occupying mass lesion. Normal hepatopedal portal venous flow direction. No gallstones or gallbladder wall thickening or pericholecystic fluid collection. Neg ative sonographic Dunn's sign. Common bile duct measures 2.4 mm, normal. Normal caliber of the abdominal aorta. Inferior vena cava is unremarkable. No renal mass lesion or hydronephrosis. Normal splenic size. IMPRESSION: No significant abnormality Reviewed, dictated and finalized at Location A. Reviewed, dictated and finalized at location A. IMPRESSION: No significant abnormality
== END ==
PROVIDERS: PCP Internal Medicine; Visit Provider Registered Nurse
DX: R10.9 Unspecified abdominal pain (principal)
CPT/HCPCS: 76700

== ENCOUNTER → 2022-08-29 16:16 | Outpatient (CLI) | payer OTHER, SELFPAY ==
--- NOTE | ~2022-08-29 | MM_ITS ---
EXAMINATION: MM screening byron BI w lu HISTORY: Screening TECHNIQUE: Craniocaudal and mediolateral oblique 3-D tomosynthesis images were obtained and synthetic 2-D images were generated. CAD analysis was submitted and interpreted. COMPARISON: Comparison to multiple prior studies sequentially, with oldest reviewed study dated 03/29. BREAST PARENCHYMAL COMPOSITION: The breasts are heterogeneously dense, which may obscure small masses FINDINGS: There is no evidence of suspicious mass, calcification, or architectural distortion to sugg est malignancy in either breast. There has been no suspicious interval change. IMPRESSION: 1. No mammographic evidence of malignancy. 2. Recommend routine screening mammography in one year. BI-RADS Category 1: Negative Reviewed, dictated and finalized at location A.
== END ==
PROVIDERS: PCP Internal Medicine; Visit Provider Registered Nurse
DX: Z12.31 Encounter for screening mammogram for malignant neoplasm of breast (principal)
CPT/HCPCS: 77063; 77067

== ENCOUNTER 2022-12-24 09:34 | Outpatient (CLI) | payer OTHER, SELFPAY ==
--- NOTE | ~2022-12-24 | CT_ITS ---
Non-contrast Head CT History: Headache Technique: Axial non-contrast imaging of the brain was performed. Dose reduction technique was used on this scan by utilizing automated exposure control and iterative reconstruction technique. The dose -length product (DLP) was 605.33 mGy-cm. Findings: There is no evidence of intracranial hemorrhage, mass lesion, or acute infarct. Brain par enchyma appears normal. The ventricles and subarachnoid spaces are normal in size. The calvarium ap pears normal. The visualized paranasal sinuses and mastoid air cells are clear. Impression: No significant abnormality seen. Reviewed, dictated and finalized at location . Impression: No significant abnormality seen.
== END 2022-12-24 09:35 | disposition home or self-care (01) ==
PROVIDERS: PCP Internal Medicine; Visit Provider Internal Medicine
DX: R51.9 Headache, unspecified (principal); R26.89 Other abnormalities of gait and mobility
CPT/HCPCS: 70450; 88305

== ENCOUNTER 2022-12-24 13:23 | Outpatient (NON) | payer OTHER, SELFPAY | END 2022-12-24 13:24 | disposition home or self-care (01) | PROVIDERS: PCP Internal Medicine; Visit Provider Nurse Practitioner | DX: D22.5 Melanocytic nevi of trunk (principal); L82.1 Other seborrheic keratosis | CPT/HCPCS: 88305 ==

== ENCOUNTER 2023-12-31 15:31 | Outpatient (CLI) | payer OTHER, SELFPAY ==
--- NOTE | ~2023-12-31 | MM_ITS ---
EXAMINATION: MM screening [facility] BI w lu HISTORY: Screening TECHNIQUE: Craniocaudal and mediolateral oblique 3-D tomosynthesis images were obtained and synthetic 2-D images were generated. CAD analysis was submitted and interpreted. COMPARISON: Comparison to multiple prior studies sequentially, with oldest reviewed study dated 04/26. BREAST PARENCHYMAL COMPOSITION: Not dense: There are scattered areas of fibroglandular density. FINDINGS: There is no evidence of suspicious mass, calcification, or architectural distortion to sugg est malignancy in either breast. There has been no suspicious interval change. IMPRESSION: 1. No mammographic evidence of malignancy. 2. Recommend routine screening mammography in one year. BI-RADS Category 1: Negative Reviewed, dictated and finalized at location B.
== END 2023-12-31 15:32 ==
LOC: MICIMG 15:32
PROVIDERS: PCP Nurse Practitioner Family; Visit Provider Nurse Practitioner Family
DX: Z12.31 Encounter for screening mammogram for malignant neoplasm of breast (principal)
CPT/HCPCS: 77063; 77067